=== PATIENT | male | born 1985 | race Caucasian/White ===

== ENCOUNTER 2021-08-26 12:33 | Emergency (ER) | payer OTHER ==
[2021-08-26] MEDS ORDERED: Clindamycin HCl 150 MG Cap PO ONE (12:34)
[2021-08-26] MEDS ORDERED: Piperacillin/Tazobactam 3.375 GM in Sodium Chloride 0.9% 100 ML IV ONE (14:17)
[2021-08-26] MEDS ORDERED: Sodium Chloride 0.9% 1,000 ML IV ONE (14:20)
[2021-08-26] MEDS ORDERED: Iopamidol 612 MG/ML 100 ML Bottle IVPUSH ONE (14:20)
[2021-08-26] MEDS ORDERED: Clindamycin HCl 150 MG Cap ONE (16:04)
[2021-08-26 16:17] LABS: ANION GAP 12.7 mEq/L (7-13); CHLORIDE,CL 101 mmol/L (98-107); SODIUM,NA 139 mmol/L (136-145)
[2021-08-26 16:20] LABS: ESTIMATED GFR 66 mL/min (>=60)
== END 2021-08-26 16:14 | disposition home or self-care (01) ==
LOC: DL.ED 12:33
DX: L03.211 Cellulitis of face (principal); L02.01 Cutaneous abscess of face; K04.7 Periapical abscess without sinus; K02.9 Dental caries, unspecified
CPT/HCPCS: 36415; 70487; 80053; 83605; 85025; 96365; 99283; A9270; J2543; Q9967

== ENCOUNTER 2024-10-07 20:40 | Emergency (ER) | payer BC ==
[2024-10-07 21:40] VITALS: BP 149/83; PULSE 78
== END 2024-10-07 23:34 | disposition home or self-care (01) ==
LOC: DL.ED 20:40
DX: S83.92XA Sprain of unspecified site of left knee, initial encounter (principal); I10 Essential (primary) hypertension; X50.0XXA Overexertion from strenuous movement or load, initial encounter; Y93.68 Activity, volleyball (beach) (court)
CPT/HCPCS: 73564-LT; 99283

== ENCOUNTER 2024-12-23 17:56 | Emergency (ER) | payer BC ==
[2024-12-23] MEDS ORDERED: Sodium Chloride 0.9% 10 ML Syringe FLUSH PRN (18:12)
[2024-12-23 18:34] LABS: BASOPHILS PERCENT AUTO 0.3 % (0.0-1.0); EOSINOPHILS PERCENT AUTO 1.6 % (1.0-3.0); LYMPHOCYTES PERCENT AUTO 32.9 % (20.5-50.1); MONOCYTES PERCENT AUTO 8.5 % (2-8); NEUTROPHILS PERCENT AUTO 56.7 % (42.2-75.2); PLATELET COUNT,PLT 317 10^3/uL (150-450); RED BLOOD CELL COUNT 5.01 10^6/uL (4.6-6.2); WHITE BLOOD CELL COUNT,WBC 6.1 10^3/uL (5.0-10.0)
[2024-12-23 19:03] LABS: A/G RATIO 1.2; ALANINE AMINOTRANSFERASE,ALT 47 U/L (16-63); ASPARTATE AMNIOTRANSFERASE,AST 22 U/L (15-37); BILIRUBIN TOTAL 0.4 mg/dL (0.2-1.0); BLOOD UREA NITROGEN,BUN 17 mg/dL (7-18); CARBON DIOXIDE,CO2 28 mmol/L (21-32); CHLORIDE,CL 102 mmol/L (98-107); CREATININE 0.84 mg/dL (0.70-1.30); EST CRCL DRUG DOSING (CG) 115.73 mL/min; GLUCOSE RANDOM 114 mg/dL (70-99); POTASSIUM,K 3.7 mmol/L (3.5-5.1); PROTEIN TOTAL,TP 8.5 g/dL (6.4-8.2); SODIUM,NA 140 mmol/L (136-145); T4 FREE 0.61 ng/dL (0.76-1.46); TSH ULTRASENSITIVE 1.82 uIU/mL (0.36-3.74)
[2024-12-23 19:04] LABS: ESTIMATED GFR 112 mL/min (>=60)
[2024-12-23 20:00] VITALS: BP 155/79; PULSE 79
== END 2024-12-23 19:54 | disposition home or self-care (01) ==
LOC: DL.ED 17:56
DX: I10 Essential (primary) hypertension (principal); Z79.899 Other long term (current) drug therapy
CPT/HCPCS: 36415; 80053; 83735; 84439; 84443; 84484; 85025; 86140; 93005; 99284; A9270